=== PATIENT | male | born 1955 | race Caucasian/White ===

== ENCOUNTER 2017-07-31 08:33 | Emergency (ER) | END 2017-07-31 11:59 | disposition home or self-care (01) ==

== ENCOUNTER 2017-08-21 19:48 | Inpatient (IN) | END 2017-08-23 17:00 | disposition home or self-care (01) | DRG 442 ==

== ENCOUNTER 2017-09-22 21:44 | Emergency (ER) | END 2017-09-23 02:37 | disposition home or self-care (01) ==